=== PATIENT | female | born 1955 | race Caucasian/White ===

== ENCOUNTER 2016-08-06 11:13 | Emergency (ER) | payer BC ==
[~2016-08-06] VITALS: Ht 162.6 cm; Wt 92.1 kg
[2016-08-06 11:31] VITALS: BP 151/76; PULSE 71; RESP 16; TEMP 98.7; O2SAT 98
[2016-08-06] MEDS ORDERED: DULA10IN SQ (11:53)
[2016-08-06] MEDS ORDERED: METF1000 PO (11:53)
[2016-08-06] MEDS ORDERED: QUIN40TA2 PO (11:53)
[2016-08-06] MEDS ORDERED: ATOR20TA15 PO (11:53)
[2016-08-06] MEDS ORDERED: AMLO10TA2 PO (11:53)
[2016-08-06] MEDS ORDERED: METO25TA3 PO (11:53)
[2016-08-06] MEDS ORDERED: EDOX1TAB5 PO (11:53)
[2016-08-06] MEDS ORDERED: SOTA80TA PO (11:53)
[2016-08-06] MEDS ORDERED: LANS30CA PO (11:53)
--- NOTE | 2016-08-06 11:59 | PD ---
HPI Chief Complaint: Dizziness Time Seen by Provider: 11:44 Travel History International Travel<30 days: No Contact w/Intl Traveler<30days: No Traveled to known affect area: No History of Present Illness HPI 60-year-old female complains of dizziness. Patient states the symptoms started yesterday. Patient states that she has a feeling of things spinning around her. Patient states that she has nausea today with the dizziness. Patient states that she had aching headache since this morning. Patient denies any visual change. Patient denies any chest pain or shortness of breath. Patient denies abdominal pain. Patient denies any nausea vomiting diarrhea. Patient denies any fever chills. Patient denies any focal weakness or numbness of extremity. Patient has history of atrial fibrillation. Patient's on Xarelto. Patient states that the dizziness is worse with head movement. Patient was seen by personal physician 3 days ago and had routine blood work done which was normal except mild anemia with hemoglobin around 10. PFSH Past Medical History Hx Anticoagulant Therapy: Yes Depression: Yes Cardiovascular Problems: Yes (htn on meds, a-fib) High Cholesterol: Yes Diabetes: Yes Patient Takes Glucophage: Yes Hypertension: Yes Immunizations Current: Yes (SHINGLES) Influenza Vaccination: Yes ?: Not Past Surgical History Abdominal Surgery: Yes (GASTRIC BYPASS) Hysterectomy: Yes Social History Alcohol Use: Yes (OCCAS) Tobacco Use: No Substance Use: No Allergies-Medications (Allergen,Severity, Reaction): Coded Allergies: Penicillin (Verified Allergy, Unknown, 08/06/16) Sulfa (Verified Allergy, Unknown, 08/06/16) Reported Meds & Prescriptions Reported Meds & Active Scripts Active Zofran Odt (Ondansetron Odt) 4 Mg Tab 4 Mg SL Q6HR PRN Meclizine (Meclizine HCl) 25 Mg Tab 25 Mg PO TID PRN Reported Trulicity Inj (Dulaglutide Inj) 0.75 Mg/0.5 Ml Pen 0.75 Mg SQ Q7D Lansoprazole 30 Mg Capdr 30 Mg PO HS Sotalol (Sotalol HCl) 80 Mg Tab 80 Mg PO BID Metoprolol Tartrate 25 Mg Tab 25 Mg PO DAILY Quinapril (Quinapril HCl) 40 Mg Tab 40 Mg PO BID Amlodipine (Amlodipine Besylate) 10 Mg Tab 10 Mg PO DAILY Atorvastatin (Atorvastatin Calcium) 20 Mg Tab 20 Mg PO HS Metformin (Metformin HCl) 1,000 Mg Tab 1,000 Mg PO BIDPC With meals Savaysa (Edoxaban) 60 Mg Tab 60 Mg PO DAILY Review of Systems General / Constitutional: No: Fever Eyes: No: Visual changes HENT: Positive: Headaches, Vertigo Cardiovascular: No: Chest Pain or Discomfort Respiratory: No: Shortness of Breath Gastrointestinal: Positive: Nausea, No: Abdominal Pain Genitourinary: No: Dysuria Musculoskeletal: No: Pain Skin: No Rash Neurologic: No: Weakness Psychiatric: No: Depression Endocrine: No: Polydipsia Hematologic/Lymphatic: No: Easy Bruising Physical Exam Narrative GENERAL: Well-nourished, well-developed patient. SKIN: Warm and dry. HEAD: Normocephalic. EYES: No scleral icterus. No injection or drainage. Pupils 2 mm equal reactive. NECK: Supple, trachea midline. No JVD or lymphadenopathy. CARDIOVASCULAR: Regular rate and rhythm without murmurs, gallops, or rubs. RESPIRATORY: Breath sounds equal bilaterally. No accessory muscle use. GASTROINTESTINAL: Abdomen soft, non-tender, nondistended. MUSCULOSKELETAL: No cyanosis, or edema. BACK: Nontender without obvious deformity. No CVA tenderness. Neurologic exam normal. Data Data Last Documented VS Vital Signs Date Time Temp Pulse Resp B/P Pulse Ox O2 Delivery O2 Flow Rate FiO2 08/06/16 12:54 58 16 163/78 98 Room Air 08/06/16 11:31 98.7 Orders Electrocardiogram (08/06/16 ) Meclizine (Antivert) (08/06/16 12:00) Ct Brain W/O Iv Contrast(Rout) (08/06/16 11:59) Ondansetron Odt (Zofran Odt) (08/06/16 13:15) [facility] Medical Decision Making Medical Screen Exam Complete: Yes Emergency Medical Condition: Yes Interpretation(s) Last Impressions Head CT 08/06/16 1159 Signed Impressions: Service Date/Time: Saturday, August 06, 2016 12:17 - CONCLUSION: Normal examination. Don Tidwell MD Differential Diagnosis Differential diagnosis including vertigo, cephalgia, migraine headache, tension headache, cluster headache. Narrative Course 60-year-old female with dizziness and nausea and headache. History of vertigo in the past. Patient had blood test done 3 days ago and was normal. Meclizine 25 mg by mouth given. Zofran 4 mg ODT Diagnosis Primary Impression: Acute onset of severe vertigo Patient Instructions: General Instructions Additional Instructions: Meclizine as directed. Zofran as needed for nausea. Follow-up with personal physician. Return if worse. Med/Other Pt SpecificInfo: Prescription(s) given Scripts Ondansetron Odt (Zofran Odt)4 Mg Tab4 Mg SL Q6HR PRN (Nausea/Vomiting) #10 TAB Ref 0 Prov:Andrea Saavedra MD 08/06/16 Meclizine 25 Mg Tab25 Mg PO TID PRN (VERTIGO) #21 TAB Ref 0 Prov:Andrea Saavedra MD 08/06/16 Disposition: 01 DISCHARGE HOME Condition: Stable Andrea Saavedra MD Aug 06, 2016 11:59
[2016-08-06] MEDS ORDERED: MECLIZINE HCL 25 MG TAB PO ONE (12:00)
--- NOTE | 2016-08-06 12:41 | RADHPO ---
EXAM DATE/TIME: 08/06/2016 12:17 [place] COMPARISON: No previous studies available for comparison. INDICATIONS : Dizziness, headache, nausea. RADIATION DOSE: 64.68 CTDIvol (mGy) MEDICAL HISTORY : Hypertension. Diabetes mellitus type 2. SURGICAL HISTORY : None. ENCOUNTER: Initial ACUITY: 1 day PAIN SCALE: 4/10 LOCATION: Bilateral frontal TECHNIQUE: Multiple contiguous axial images were obtained of the head. Using automated exposure control and adj ustment of the mA and/or kV according to patient size, radiation dose was kept as low as reasonably a chievable to obtain optimal diagnostic quality images. FINDINGS: CEREBRUM: The ventricles are normal for age. No evidence of midline shift, mass lesion, hemorrhage or acute in farction. No extra-axial fluid collections are seen. POSTERIOR FOSSA: The cerebellum and brainstem are intact. The 4th ventricle is midline. The cerebellopontine angle i s unremarkable. EXTRACRANIAL: The visualized portion of the orbits is intact. SKULL: The calvaria is intact. No evidence of skull fracture. CONCLUSION: Normal examination. Don Tidwell MD on August 06, 2016 at 12:39 Board Certified Radiologist. This report was verified electronically.
[2016-08-06 12:54] VITALS: BP 163/78; PULSE 58; RESP 16; O2SAT 98
[2016-08-06] MEDS ORDERED: MECL-62 PO ×2 (13:08→13:09)
[2016-08-06] MEDS ORDERED: ZOFR4TAB3 SL ×2 (13:08→13:09)
[2016-08-06] MEDS ORDERED: ONDANSETRON ODT 4 MG TAB PO ONE (13:15)
--- NOTE | 2016-08-07 15:07 | EKG ---
Date Performed: 08/06/2016 Time Performed: 11:21:56 PTAGE: 60 years EKG: Atrial fibrillation Left axis deviation IV conduction defect Inferior/lateral ST-T changes may be due to hypertrophy and/or ischemia Low QRS voltages in precordial leads Abnormal ECG NO PREVIOUS TRACING DOCTOR: Gaudencio Severino Interpretating Date/Time 08/07/2016 15:06:33
== END 2016-08-06 13:22 | disposition home or self-care (01) ==
LOC: PHED 11:13
DX: R42 Dizziness and giddiness (principal); R11.0 Nausea; R51 Headache; R94.31 Abnormal electrocardiogram [ECG] [EKG]; I10 Essential (primary) hypertension; E11.9 Type 2 diabetes mellitus without complications; E78.00 Pure hypercholesterolemia, unspecified; Z79.01 Long term (current) use of anticoagulants; Z79.84 Long term (current) use of oral hypoglycemic drugs; Z86.79 Personal history of other diseases of the circulatory system; Z86.2 Personal history of diseases of the blood and blood-forming organs and certain disorders involving the immune mechanism; Z86.59 Personal history of other mental and behavioral disorders
CPT/HCPCS: 70450; 93005